=== PATIENT | male | born 1970 | race Caucasian/White ===

== ENCOUNTER 2017-09-10 14:40 | Emergency (ER) | payer MEDICAID ==
[~2017-09-10] VITALS: Ht 180.3 cm; Wt 93.0 kg
[~2017-09-10 14:40] MED LIST: COZAAR50 MG PO; GLUCOPHAGE500 MG ORAL; IBUPROFEN600 MG ORAL; NEXIUM2.5 MG ORAL; NORCO 5-325 TA1 EACH ORAL; NORCO 5-325 TA1 EACH PO; ROBAXIN-750750 MG PO; TRAMADOL HCL50 MG ORAL; VALIUM5 MG ORAL; ZANTAC150 MG ORAL
[2017-09-10] MEDS ORDERED: Norco 5mg/325mg tab ORAL ONE (15:00)
--- NOTE | 2017-09-10 16:08 | Diagnostic Imaging Report ---
Indication: Hand pain Technique: 3 views right hand Comparison: none Findings: No acute fractures. No dislocations. The joint spaces are preserved Impression: Negative
--- NOTE | 2017-09-10 16:29 | Emergency Room Report ---
History of Present Illness General Chief Complaint: Upper Extremity Injury Source: Patient Present Illness HPI 46-year-old male presents to the emergency department complaining of 10 out of 10 in severity localized pain to the right metacarpal that is post punching an elevator door 2 days ago. Patient denies in contact with anyone mouth. Patient reports abrasions to the knuckle of the right hand. Patient denies bleeding at this time reports swelling denies bruises. Denies numbness tingling or loss of sensation or gross motor movements of the extremities, incontinence of bowel or bladder. Denies CP, Palpitations, LOC, AMS, dizziness, Changes in Vision, weakness or a sudden severe headache. Pt. reports he is not complete sure when is last tetanus was. Allergies: Coded Allergies: No Known Allergies (Unverified , 05/18/13) Patient History Past Medical History: see triage record Past Surgical History: none Pertinent Family History: none Immunizations: UTD Reviewed Nursing Documentation: PMH: Agreed; PSxH: Agreed Nursing Documentation-PMH Past Medical History: No History, Except For Hx Hypertension: Yes Hx Diabetes: Yes Review of Systems All Other Systems: negative except mentioned in HPI Physical Exam Vital Signs Date Time Temp Pulse Resp B/P (MAP) Pulse Ox O2 Delivery O2 Flow Rate FiO2 09/10/17 14:50 97.9 101 20 122/82 96 Room Air 97.9 Sp02 EP Interpretation: reviewed, normal General Appearance: no apparent distress, alert, GCS 15, non-toxic Head: normocephalic, atraumatic ENT: hearing grossly normal, normal voice Neck: full range of motion Respiratory: lungs clear, normal breath sounds, speaking full sentences Cardiovascular #1: regular rate, rhythm, normal capillary refill Musculoskeletal: back normal, gait/station normal, normal range of motion, swelling - distal 3rd and 4th metacarpals of the right hand. , tender - distal 3rd and 4th metacarpals of the right hand. Neurologic: alert, oriented x3, responsive, motor strength/tone normal, sensory intact, speech normal, grossly normal Psychiatric: judgement/insight normal Skin: normal color, warm/dry, well hydrated, abrasions - abrasion over the distal 3rd metacarpal of the right hand. Medical Decision Making PA Attestation Dr. holder is my supervising Physician whom patient management has been discussed with. Dr. holder is my supervising Physician whom patient management has been discussed with. Diagnostic Impression: Primary Impression: Contusion of hand, right Qualified Codes: S60.221A - Contusion of right hand, initial encounter Additional Impression: Abrasion hand ER Course 46-year-old male presents to the emergency department complaining of 10 out of 10 in severity localized pain to the right metacarpal that is post punching an elevator door 2 days ago. Patient denies in contact with anyone mouth. Patient reports abrasions to the knuckle of the right hand. Patient denies bleeding at this time reports swelling denies bruises. Denies numbness tingling or loss of sensation or gross motor movements of the extremities, incontinence of bowel or bladder. Denies CP, Palpitations, LOC, AMS, dizziness, Changes in Vision, weakness or a sudden severe headache. Pt. reports he is not complete sure when is last tetanus was. Ddx considered but are not limited to Fracture, dislocation, contusion, Sprain/ Strain/Spasm,Septic joint, fight bite, cellulitis just to name a few. Vital signs: are WNL, pt. is afebrile H&PE are most consistent with musculoskeletal injury will perform imaging to r/ o fractures/dislocations. ORDERS: - X-ray Right hand 3 views - negative for fx, Dislocation, or significant soft tissue injury, per preliminary read in ED, and signed by NOE Rutledge , my supervising physician has reviewed, and agrees with my interpretation. ED INTERVENTIONS: - Tdap - Huger PO - Paco wrap applied to the right hand by digital technician. Pt. remains neurovascularly intact. DISCHARGE: At this time pt. is stable for d/c to home. Will provide printed patient care instructions, and any necessary prescriptions. Care plan and follow up instructions have been discussed with the patient prior to discharge. Other X-Ray Diagnostic Results Other X-Ray Diagnostic Results : X-Ray ordered: Right Hand # of Views/Limited Vs Complete: 3 View Indication: Pain EP Interpretation: Yes NOE Xray: Interpretation reviewed, by supervising MD, and agrees with findings. Interpretation: no dislocation, no soft tissue swelling, no fractures Impression: No acute disease Electronically Signed by: Anu Rutledge PA-C Last Vital Signs Date Time Temp Pulse Resp B/P (MAP) Pulse Ox O2 Delivery O2 Flow Rate FiO2 09/10/17 15:10 97.9 09/10/17 14:50 101 20 122/82 96 Room Air Disposition: HOME, SELF-CARE Condition: Stable Scripts Ibuprofen* (MOTRIN*) 600 Mg Tablet 600 MG ORAL THREE TIMES A DAY, #20 TAB 0 Refills Prov: Anu Rutledge 09/10/17 Bacitracin/Polymyxin B Sulfate (BACITRACIN-POLYMYXIN OINTMENT) 28.35 Gm Oint...g. 1 APPLIC TP BID, #28.3 GM Prov: Anu Rutledge 09/10/17 Referrals: NOT CHOSEN IPA/MD,REFERRING (PCP) Patient Instructions: Contusion, [id number] Additional Instructions: Take medications as directed. Follow up with a Primary Care Provider in 3-5 days, even if your symptoms have resolved. --Please review list of primary care clinics, if you do not already have a primary care provider Return sooner to ED if new symptoms occur, or current symptoms become worse. - Please note that this Emergency Department Report was dictated using [employer]alityspray[employer] operator technology software, occasionally this can lead to erroneous entry secondary to interpretation by the dictation equipment. Anu Rutledge Sep 10, 2017 16:29
[2017-09-10] MEDS ORDERED: BACITRACIN-P28.35 GM TP (16:30)
[2017-09-10] MEDS ORDERED: Tetanus/Diptheria/Pertussis Vaccine 0.5ml Syr IM ONE (16:30)
[2017-09-10] MEDS ORDERED: IBUPROFEN600 MG ORAL (16:30)
[2017-09-10 16:45] VITALS: BP 120/80
[2017-09-10 16:46] VITALS: BP 120/80
== END 2017-09-10 16:55 | disposition home or self-care (01) ==
LOC: EMR 15:12
DX: S60.221A Contusion of right hand, initial encounter (principal); S60.511A Abrasion of right hand, initial encounter; W22.8XXA Striking against or struck by other objects, initial encounter; Y92.9 Unspecified place or not applicable; Z23 Encounter for immunization; E11.9 Type 2 diabetes mellitus without complications; I10 Essential (primary) hypertension
CPT/HCPCS: 90471; 90715; 99284

== ENCOUNTER 2019-09-24 12:15 | Emergency (ER) | payer OTHER, MEDICAID ==
[~2019-09-24] VITALS: Ht 183.5 cm; Wt 99.8 kg
[2019-09-24 12:15] VITALS: BP 157/98
[~2019-09-24 12:15] MED LIST changes: +BACITRACIN-P28.35 GM TP
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
[2019-09-24] MEDS ORDERED: Ketorolac 60mg Inj IM ONE ×2 (12:29→12:30)
[2019-09-24] MEDS ORDERED: Acetaminophen 500mg (ES) tab ORAL ONE (13:15)
[2019-09-24] MEDS ORDERED: VOLTAREN100 G1 TP (13:32)
[2019-09-24] MEDS ORDERED: ROBAXIN-500MG ORAL (13:32)
--- NOTE | 2019-09-24 14:01 | Diagnostic Imaging Report ---
Indication: Pain and trauma Technique: Spiral acquisitions obtained through the cervical spine. No IV contrast utilized. Multiplanar reconstructions were generated. Total dose length product 349 mGycm. CTDIvol(s) 11 mGy. Dose reduction achieved using automated exposure control. Comparison: none Findings: Bony alignment is normal. Vertebral body heights are preserved. No acute fractures. No dislocations. No prevertebral soft tissue swelling. There is some nuchal ligament ossification noted. At C3-4, there is minimal broad-based posterior disc protrusion, which does not significant white narrow the spinal canal. The disc space is preserved. The neural foramina are preserved. At C4-5, there is minimal broad-based posterior disc protrusion which does not significantly narrow the spinal canal. Disc space is preserved. The neural foramina are preserved. At C5-6, posterior osteophytes are noted, but do not significantly narrow the spinal canal. The disc space is preserved. The neural foramina are preserved. At C6-7, there is degenerative disc narrowing. There is right subarticular disc protrusion, which may compromise the right lateral recess and neural foramen. No significant central canal stenosis is demonstrated. There is mild narrowing of the bony neural foramen on the left. At C7-T1, there is severe degenerative narrowing of the disc. There is moderate left and mild right neural foraminal narrowing. The included extraspinal soft tissues are unremarkable. Impression: No acute bony trauma Degenerative changes, as detailed on a level by level basis above. The CT scanner at [facility] is accredited by the [employer] and the scans are performed using protocols designed to limit radiation exposure to as low as reasonably achievable to attain images of sufficient resolution adequate for diagnostic evaluation.
--- NOTE | 2019-09-24 14:07 | Diagnostic Imaging Report ---
Indications: Back pain and trauma Technique: Spiral acquisitions obtained through the lumbar spine. Multiplanar reconstructions were generated. No IV contrast utilized. Total dose length product 507 mGycm. CTDIvol(s) 14 mGy. Dose reduction achieved using automated exposure control Comparison: none Findings: Bony alignment is normal. Vertebral body heights are preserved. No acute fractures. No dislocations. At L4-5, there is degenerative disc narrowing. Posterior disc protrusion/osteophyte complex results in borderline narrowing of the spinal canal and may compromise the left lateral recess and to a slight extent the left neural foramen. At L5-S1, there is degenerative disc narrowing. Posterior disc protrusion/osteophyte complex results in mild narrowing of the spinal canal. The right neural foramen demonstrates at least moderate narrowing. The left neural foramen is preserved. There is bilateral facet arthrosis and L4-5 and L5-S1. Included extra spinal soft tissues demonstrate considerable atherosclerotic vascular calcification.. Impression: No acute bony trauma Degenerative changes, as detailed on a level by level basis above The CT scanner at [facility] is accredited by the [employer] and the scans are performed using protocols designed to limit radiation exposure to as low as reasonably achievable to attain images of sufficient resolution adequate for diagnostic evaluation.
[2019-09-24 14:11] VITALS: BP 144/90
--- NOTE | 2019-09-25 13:49 | Diagnostic Imaging Report ---
Indication: Pain, trauma Technique: 2 views of the right shoulder Comparison: none Findings: No acute fractures. No dislocations. The joint spaces are preserved Impression: Negative
== END 2019-09-24 14:11 | disposition home or self-care (01) ==
LOC: EDBD 12:15 → EMR 12:45
DX: S16.1XXA Strain of muscle, fascia and tendon at neck level, initial encounter (principal); S39.012A Strain of muscle, fascia and tendon of lower back, initial encounter; I10 Essential (primary) hypertension; E11.9 Type 2 diabetes mellitus without complications; V43.52XA Car driver injured in collision with other type car in traffic accident, initial encounter; Y92.411 Interstate highway as the place of occurrence of the external cause
CPT/HCPCS: 72125; 72131; 96372; 99284